=== PATIENT | male | born 1990 | race Caucasian/White ===

== ENCOUNTER 2016-10-31 16:41 | Emergency (ER) | payer MEDICAID ==
[~2016-10-31 16:41] MED LIST: BACTRIM DS TAB1 EACH PO; TESSALON PERLE100 M1 PO
[2016-10-31] MEDS ORDERED: ILOTYCIN1 GM OP (18:20)
[2016-10-31 18:42] VITALS: BP 122/73
== END 2016-10-31 18:43 | disposition home or self-care (01) ==
LOC: ED 16:41
DX: H10.021 Other mucopurulent conjunctivitis, right eye (principal)

== ENCOUNTER → 2017-01-15 | Outpatient (CLI) | payer MEDICAID ==
[~2017-01-15] MED LIST changes: +ILOTYCIN1 GM OP
== END ==
LOC: RAD 15:42
DX: M79.672 Pain in left foot (principal)

== ENCOUNTER 2017-04-02 02:53 | Emergency (ER) | payer MEDICAID ==
[~2017-04-02] VITALS: Ht 180.3 cm; Wt 125.0 kg
[2017-04-02 04:35] VITALS: BP 124/75
== END 2017-04-02 04:35 | disposition home or self-care (01) ==
LOC: ED 02:53
DX: S60.222A Contusion of left hand, initial encounter (principal); W22.01XA Walked into wall, initial encounter; Y92.009 Unspecified place in unspecified non-institutional (private) residence as the place of occurrence of the external cause

== ENCOUNTER 2017-07-08 18:50 | Emergency (ER) | payer MEDICAID ==
[~2017-07-08] VITALS: Ht 180.3 cm; Wt 127.5 kg
[2017-07-08 20:05] VITALS: BP 131/84
== END 2017-07-08 19:40 | disposition home or self-care (01) ==
LOC: ED 18:50
DX: T63.441A Toxic effect of venom of bees, accidental (unintentional), initial encounter (principal)

== ENCOUNTER 2018-05-06 13:48 | Emergency (ER) | payer MEDICAID ==
[~2018-05-06] VITALS: Ht 180.3 cm; Wt 125.0 kg
[2018-05-06 13:58] VITALS: BP 127/86
[2018-05-06] MEDS ORDERED: CYCLOBENZAPRINE10 M1 PO (16:42)
== END 2018-05-06 17:18 | disposition home or self-care (01) ==
LOC: ED 13:48
DX: S23.3XXA Sprain of ligaments of thoracic spine, initial encounter (principal); S33.5XXA Sprain of ligaments of lumbar spine, initial encounter; W11.XXXA Fall on and from ladder, initial encounter; Y92.009 Unspecified place in unspecified non-institutional (private) residence as the place of occurrence of the external cause; F17.200 Nicotine dependence, unspecified, uncomplicated
CPT/HCPCS: J1885; J2360

== ENCOUNTER → 2018-05-22 | Outpatient (CLI) | payer MEDICAID ==
[2018-05-06 13:58] VITALS: BP 127/86
[~2018-05-22] MED LIST changes: +CYCLOBENZAPRINE10 M1 PO
[2018-05-22 13:52] LABS: EOS # 0.2 (0.04-0.40); EOS % 2.4 % (0.0-4.0); HEMATOCRIT 45.8 % (42.0-52.0); LYMPH# 2.4 (1.50-4.00); MEAN CELL VOLUME 87 fl (78-100); MEAN CORPUSCULAR HEMOGLOBIN 31 pg (27-31); MEAN CORPUSCULAR HGB CONC 35 g/dL (33-37); MEAN PLATELET VOLUME 9.7 fl (7.4-10.4); MONO # 0.6 (0.20-0.80); NEU # 4.7 (1.40-6.50); PLATELET COUNT 287 K/mm3 (130-400); RED BLOOD COUNT 5.25 M/mm3 (4.20-5.60); RED CELL DISTRIBUTION WIDTH 12.7 % (11.5-14.5)
[2018-05-22 14:11] LABS: ALBUMIN 3.9 g/dL (3.5-5.0); BUN/CREATININE RATIO 15.9 (6.0-26.0); CALCIUM 8.9 mg/dL (8.4-10.2); POTASSIUM 3.9 mmol/L (3.6-5.0); TOTAL BILIRUBIN 0.4 mg/dL (0.2-1.3); TOTAL PROTEIN 6.9 g/dL (6.3-8.2)
== END ==
LOC: LAB 13:34
PROVIDERS: Family Medicine
DX: Z00.00 Encounter for general adult medical examination without abnormal findings (principal)

== ENCOUNTER 2018-06-18 12:23 | Emergency (ER) | payer MEDICAID ==
[2018-06-18] MEDS ORDERED: AMOXICILLIN AND1 TA2 PO (12:35)
[2018-06-18] MEDS ORDERED: OMEPRAZOLE40 MG PO (12:35)
[2018-06-18 13:04] VITALS: BP 152/102
== END 2018-06-18 13:24 | disposition home or self-care (01) ==
LOC: ED 12:23
DX: G89.18 Other acute postprocedural pain (principal); R68.84 Jaw pain; F17.210 Nicotine dependence, cigarettes, uncomplicated

== ENCOUNTER → 2018-08-14 | Outpatient (CLI) | payer MEDICAID ==
[~2018-08-14] MED LIST changes: +AMOXICILLIN AND1 TA2 PO; +OMEPRAZOLE40 MG PO
[2018-08-14 13:25] LABS: EOS # 0.2 (0.04-0.40); EOS % 2.8 % (0.0-4.0); HEMATOCRIT 42.7 % (42.0-52.0); HEMOGLOBIN 15.2 g/dL (13.5-18.0); LYMPH# 3.3 (1.50-4.00); MEAN CELL VOLUME 88 fl (78-100); MEAN CORPUSCULAR HEMOGLOBIN 31 pg (27-31); MEAN CORPUSCULAR HGB CONC 36 g/dL (33-37); MEAN PLATELET VOLUME 10.7 fl (7.4-10.4); MONO # 0.5 (0.20-0.80); NEU # 3.9 (1.40-6.50); PLATELET COUNT 293 K/mm3 (130-400); RED BLOOD COUNT 4.86 M/mm3 (4.20-5.60); RED CELL DISTRIBUTION WIDTH 12.5 % (11.5-14.5); WHITE BLOOD COUNT 7.9 K/mm3 (4.8-10.8)
[2018-08-14 13:44] LABS: CALCIUM 9.1 mg/dL (8.4-10.2); POTASSIUM 3.7 mmol/L (3.6-5.0); TOTAL BILIRUBIN 0.4 mg/dL (0.2-1.3); TOTAL PROTEIN 6.7 g/dL (6.3-8.2)
[2018-08-14 13:54] LABS: ALBUMIN 3.9 g/dL (3.5-5.0)
== END ==
LOC: LAB 12:38
DX: K21.9 Gastro-esophageal reflux disease without esophagitis (principal); R19.7 Diarrhea, unspecified; R11.10 Vomiting, unspecified

== ENCOUNTER → 2018-09-23 | Outpatient (CLI) | payer MEDICAID | LOC: RAD 13:50 | DX: M25.561 Pain in right knee (principal) ==

== ENCOUNTER → 2018-11-21 | Outpatient (CLI) | payer MEDICAID | LOC: VAS 10:04 | DX: D17.1 Benign lipomatous neoplasm of skin and subcutaneous tissue of trunk (principal) ==

== ENCOUNTER → 2019-08-26 | Outpatient (CLI) | payer MEDICAID ==
[2019-04-16 22:59] VITALS: BP 143/92
[~2019-08-26] MED LIST changes: +AMOXIL500 M1 PO; +DULOXETINE30 MG PO; +NORCO 325 MG-7.1 TAB PO
[2019-08-26 15:09] LABS: EOS # 0.3 (0.04-0.40); EOS % 2.9 % (0.0-4.0); HEMATOCRIT 49.3 % (42.0-52.0); HEMOGLOBIN 16.8 g/dL (13.5-18.0); LYMPH# 2.5 (1.50-4.00); MEAN CELL VOLUME 89 fl (78-100); MEAN CORPUSCULAR HEMOGLOBIN 30 pg (27-31); MEAN CORPUSCULAR HGB CONC 34 g/dL (33-37); MEAN PLATELET VOLUME 10.4 fl (7.4-10.4); MONO # 0.6 (0.20-0.80); NEU # 5.5 (1.40-6.50); PLATELET COUNT 237 K/mm3 (130-400); RED BLOOD COUNT 5.54 M/mm3 (4.20-5.60); RED CELL DISTRIBUTION WIDTH 12.9 % (11.5-14.5); WHITE BLOOD COUNT 8.9 K/mm3 (4.8-10.8)
[2019-08-26 15:22] LABS: ALBUMIN 4.5 g/dL (3.5-5.0); POTASSIUM 4.1 mmol/L (3.5-5.1)
[2019-08-26 15:23] LABS: CALCIUM 9.6 mg/dL (8.3-10.5)
[2019-08-26 15:24] LABS: TOTAL PROTEIN 7.2 g/dL (6.4-8.3)
[2019-08-26 15:26] LABS: TOTAL BILIRUBIN 0.5 mg/dL (0.2-1.2)
== END ==
LOC: LAB 14:47
PROVIDERS: Family Medicine
DX: Z00.00 Encounter for general adult medical examination without abnormal findings (principal); I10 Essential (primary) hypertension

== ENCOUNTER → 2020-02-24 | Outpatient (CLI) | payer MEDICAID ==
[2019-04-16 22:59] VITALS: BP 143/92
== END ==
LOC: LAB 09:37
DX: R09.81 Nasal congestion (principal)

== ENCOUNTER → 2020-03-15 | Outpatient (CLI) | payer MEDICAID ==
[2019-04-16 22:59] VITALS: BP 143/92
[2020-03-15 16:32] LABS: EOS # 0.2 (0.04-0.40); EOS % 2.1 % (0.0-4.0); HEMATOCRIT 46.3 % (42.0-52.0); HEMOGLOBIN 15.6 g/dL (13.5-18.0); LYMPH# 3.1 (1.50-4.00); MEAN CELL VOLUME 92 fl (78-100); MEAN CORPUSCULAR HEMOGLOBIN 31 pg (27-31); MEAN CORPUSCULAR HGB CONC 34 g/dL (33-37); MEAN PLATELET VOLUME 10.2 fl (7.4-10.4); MONO # 0.7 (0.20-0.80); NEU # 6.2 (1.40-6.50); PLATELET COUNT 286 K/mm3 (130-400); RED BLOOD COUNT 5.06 M/mm3 (4.20-5.60); RED CELL DISTRIBUTION WIDTH 12.8 % (11.5-14.5); WHITE BLOOD COUNT 10.3 K/mm3 (4.8-10.8)
== END ==
LOC: LAB 16:04
PROVIDERS: Family Medicine
DX: R59.1 Generalized enlarged lymph nodes (principal)

== ENCOUNTER → 2020-05-10 | Outpatient (CLI) | payer MEDICAID ==
[2019-04-16 22:59] VITALS: BP 143/92
== END ==
LOC: LAB 10:30
DX: J02.9 Acute pharyngitis, unspecified (principal); R19.7 Diarrhea, unspecified; R11.0 Nausea

== ENCOUNTER → 2020-05-26 | Outpatient (CLI) | payer MEDICAID ==
[2019-04-16 22:59] VITALS: BP 143/92
[2020-05-26 09:04] LABS: EOS # 0.2 (0.04-0.40); EOS % 2.2 % (0.0-4.0); HEMATOCRIT 45.5 % (42.0-52.0); HEMOGLOBIN 15.4 g/dL (13.5-18.0); LYMPH# 2.2 (1.50-4.00); MEAN CELL VOLUME 91 fl (78-100); MEAN CORPUSCULAR HEMOGLOBIN 31 pg (27-31); MEAN CORPUSCULAR HGB CONC 34 g/dL (33-37); MEAN PLATELET VOLUME 10.1 fl (7.4-10.4); MONO # 0.7 (0.20-0.80); NEU # 6.3 (1.40-6.50); PLATELET COUNT 282 K/mm3 (130-400); WHITE BLOOD COUNT 9.5 K/mm3 (4.8-10.8)
[2020-05-26 09:14] LABS: ALBUMIN 4.1 g/dL (3.5-5.0)
[2020-05-26 09:15] LABS: POTASSIUM 3.8 mmol/L (3.5-5.1)
[2020-05-26 09:17] LABS: TOTAL PROTEIN 6.8 g/dL (6.4-8.3)
[2020-05-26 09:19] LABS: TOTAL BILIRUBIN 0.6 mg/dL (0.2-1.2)
== END ==
LOC: RAD 08:47
PROVIDERS: Nurse Practitioner
DX: R06.89 Other abnormalities of breathing (principal)

== ENCOUNTER → 2020-11-03 | Outpatient (CLI) | payer MEDICAID ==
[2019-04-16 22:59] VITALS: BP 143/92
[2020-11-03 14:21] LABS: URINE APPEARANCE CLEAR; URINE BILIRUBIN NEGATIVE (NEGATIVE); URINE BLOOD TRACE (NEGATIVE); URINE COLOR ORANGE; URINE GLUCOSE NEGATIVE (NEGATIVE); URINE KETONE NEGATIVE (NEGATIVE); URINE LEUKOCYTE ESTERASE NEGATIVE (NEGATIVE); URINE NITRATE NEGATIVE (NEGATIVE); URINE PROTEIN(semi-quant) 1+ mg/dL (NEGATIVE); URINE UROBILINOGEN NORMAL (NORMAL)
[2020-11-03 14:22] LABS: URINE MUCUS PRESENT (NOT PRESENT)
== END ==
LOC: LAB 11:08
PROVIDERS: Family Medicine
DX: R73.9 Hyperglycemia, unspecified (principal)

== ENCOUNTER → 2022-11-07 | Outpatient (CLI) | payer OTHER ==
[~2022-11-07] MED LIST changes: +CATAFLAM50 M1 PO
== END ==
LOC: RAD 16:32
DX: M50.321 Other cervical disc degeneration at C4-C5 level (principal); M50.322 Other cervical disc degeneration at C5-C6 level; M50.80 Other cervical disc disorders, unspecified cervical region; M43.16 Spondylolisthesis, lumbar region

== ENCOUNTER → 2024-09-02 | Outpatient (CLI) | payer MEDICAID ==
[~2024-09-02] MED LIST changes: +KETOROLAC10 MG PO
== END ==
LOC: RAD 13:53
DX: M47.26 Other spondylosis with radiculopathy, lumbar region (principal); M51.16 Intervertebral disc disorders with radiculopathy, lumbar region; M48.061 Spinal stenosis, lumbar region without neurogenic claudication